=== PATIENT | male | born 1965 | race Caucasian/White ===

== ENCOUNTER 2016-07-02 14:11 | Emergency (ER) | payer MEDICARE, MEDICAID ==
[~2016-07-02 14:11] MED LIST: ADULT ASPIRIN81 MG PO; ADVAIR 25028 BLISTER INH; ANTIVERT25 MG PO; ASCRIPTIN 325325 MG PO; BUSPAR10 MG PO; CELEXA10 MG PO; CELEXA40 M2 PO; CELEXA40 MG PO; CHANTIX1 MG PO; CLEOCIN HCL300 MG PO; COMBIVENT1 PUFF INH; COMPAZINE10 M1 PO; COREG12.5 M1 PO; COREG6.25 MG PO; DARVOCET-N 1001 TAB PO; DIABETA5 MG PO; EFFIENT10 MG/TAB PO; ENDOCET 5/325 T1 TAB PO; FAMOTIDINE40 M3 PO; GLUCOPHAGE1000 MG PO; GLUCOPHAGE500 MG PO; GLYBURIDE5 MG PO; HALFPRIN162 MG PO; HUMALOG100 U/ML SQ; HUMALOG100 UNITS/ SC; IMDUR30 MG PO; INSULIN PUMP; ISOSORBIDE MONO30 MG PO; LAMISIL250 MG PO; LANTUS100 U/ML SC; LANTUS100 UNITS/ SC; LEVAQUIN750 MG PO; LIPITOR80 M1 PO; LIPITOR80 MG PO; METFORMIN HCL1000 MG PO; METFORMIN HCL500 M4 PO; METFORMIN HCL500 MG PO; NAPROXEN500 MG PO; NEURONTIN100 M1 PO; NEURONTIN300 M1 PO; NIACIN; NIACIN50 PO; NITROGLYCERIN0.4 MG SL; NITROSTAT0.4 MG SL; NITROSTAT0.4 MG/TAB SL; NORVASC10 MG PO; NORVASC5 MG PO; NOVOLIN-R100 UNITS/ SC; NOVOLOG100 U/M SQ; NOVOLOG100 UNITS/; OXYCODONE/APAP PO; OXYCONTIN10 M1 PO; PEPCID40 M1 PO; PEPCID40 MG PO; PLAVIX75 M1 PO; PLAVIX75 MG PO; PRILOSEC20 MG PO; PRILOSEC40 M1 PO; PROAIR INHALER INH; PROCHLORPERAZIN10 MG PO; PROTONIX40 MG PO; RANEXA500 MG PO; REGLAN10 MG PO; SENOKOT-S TABLE1 TAB PO; SIMVASTATIN20 MG PO; SIMVASTATIN80 MG PO; SPIRIVA18 MCG IH; TENORMIN25 MG PO; THEO-24300 MG PO; TRAZODONE HCL100 M1 PO; TUMS500 MG PO; VASOTEC5 MG PO; VENTOLIN HFA18 GM IH; [UNRECOGNIZED DRUG - OTHER]
[2016-07-02 14:59] LABS: BASO % 0.4 % (0-2); EOS % 1.5 % (0-7); EOSINOPHIL ABSOLUTE COUNT 0.2 tho/cmm (0.0-0.7); HCT-HEMATOCRIT 42.9 % (36.0-53.5); HGB-HEMOGLOBIN 14.9 gm/dl (13.5-17.0); IMMATURE GRANULOCYTES ABSOLUTE 0.01 tho/cmm (0-0.03); IMMATURE GRANULOCYTES PERCENT 0.1 % (0-0.3); LYMPH % 24.5 % (20-45); LYMPH ABSOLUTE COUNT 2.5 tho/cmm (0.8-4.5); MCH (MEAN CORPUSCULAR HGB) 30.4 pg (28.0-32.0); MCHC MEAN CORPUSCULAR HGB CONC 34.7 % (32.0-36.0); MCV (MEAN CELL VOLUME) 87.6 fl (82.0-96.0); MEAN PLATELET VOLUME 9.5 cmc (9.4-12.4); MONO % 4.3 % (0-12); MONOCYTE ABSOLUTE COUNT 0.4 tho/cmm (0.0-1.2); NEUTROPHIL ABSOLUTE COUNT 7.1 tho/cmm (1.6-8.0); NEUTROPHIL-AUTOMATED 7.1 tho/cmm (1.6-8.0); NEUTROPHILS % 69.2 % (40-80); PLATELET COUNT 234 tho/cmm (150-450); RED CELL DISTRIBUTION WIDTH 13.4 % (12.4-16.4); WHITE BLOOD COUNT 10.2 tho/cmm (4.0-10.0)
[2016-07-02] MEDS ORDERED: LYRICA50 MG/CAP PO (15:04)
[2016-07-02 15:11] LABS: PROTHROMBIN TIME 11.8 SECONDS (9.0-13.6)
[2016-07-02 15:15] LABS: ANION GAP 13 mmol/L (0-20); BLOOD UREA NITROGEN 11 mg/dl (6-24); CALCIUM 8.7 mg/dl (8.5-10.5); CARBON DIOXIDE-VENOUS 24 mmol/L (22-32); CHLORIDE 105 mmol/l (96-110); CREATININE 0.79 mg/dl (0.60-1.30); GLUCOSE 147 mg/dL (70-110); POTASSIUM 3.6 mmol/L (3.7-5.1); SODIUM 138 mmol/L (135-145); eGFR VALUE FOR BLACK >90 mL/Min
== END 2016-07-02 17:15 ==
LOC: EDMED 14:11
PROVIDERS: Emergency Medicine
DX: R07.89 Other chest pain (principal); E87.6 Hypokalemia; I25.10 Atherosclerotic heart disease of native coronary artery without angina pectoris; E11.9 Type 2 diabetes mellitus without complications; I10 Essential (primary) hypertension; E78.5 Hyperlipidemia, unspecified; Z95.5 Presence of coronary angioplasty implant and graft; Z79.4 Long term (current) use of insulin; Z79.82 Long term (current) use of aspirin; Z79.899 Other long term (current) drug therapy; F17.200 Nicotine dependence, unspecified, uncomplicated; Z53.20 Procedure and treatment not carried out because of patient's decision for unspecified reasons